=== PATIENT | female | born 1935 | race Caucasian/White ===

== ENCOUNTER 2016-03-13 11:59 | Inpatient (IN) | payer OTHER ==
[~2016-03-13] VITALS: Ht 165.1 cm; Wt 91.8 kg
--- NOTE | ~2016-03-13 | 2DMMODE ---
[facility] [address] 2 D/M-MODE ECHOCARDIOGRAM Name: BONGBENJA Jam Room #: 206-P [facility] IN .R.#: [id number] Admission: 03/13/16 Attend Phys: Kelsie Tanner Discharge: Date of : 37 Date of Service: 03/14/16 0817 Report #: [id number] THIS REPORT FOR: //name// Transthoracic Echocardiography Ordering physician: Aminata Colon Referring physician: Vinita Zamora Saida A. Camera Supervisor: Lourdes Sow Indications/History: Elevated BNP, Afib. Hx: CHF, HTN, HLP BP: 107 / HR: 104bpm Height: 65in Weight: 190.6lb 58 Study data: M-mode, complete 2D, complete spectral Doppler, and color Doppler. Location: Bedside. Routine. Image quality was adequate. 2D measurements Normal Normal LVID ED 41.9mm 36-57 IVS ED 10.7mm 6-11 LVID ES 27.4mm 23-40 LVPW ED 11.2mm 6-11 LA volume 52ml/m2 16-28 AoRoot diam 34.8mm 21-37 index ED LVOT diameter 19mm 18-23 Findings: Left ventricle: The cavity size was normal. Wall thickness was normal. Systolic function was normal. The estimated ejection fraction was in the range of 60% to 65%. Wall motion was normal. Right ventricle: The cavity size was moderately dilated. Systolic function was normal. Right atrium: The atrium was markedlydilated. Left atrium: The atrium was severely dilated. Volume index: 52ml/m2 (S). Aortic valve: Mildly thickened, mildly calcified leaflets. Doppler: There was no stenosis. Mild regurgitation. Peak velocity: 184.5cm/s (S). Peak gradient: 13.7mm Hg [address] [address] 2 D/M-MODE ECHOCARDIOGRAM Name: BENJA WOODY Room #: 206-P ADM IN M.R.#: [id number] Admission: 03/13/16 Attend Phys: Kelsie Tanner Discharge: Date of : 37 Date of Service: 03/14/16 0817 Report #: [id number] (S). Mitral valve: Mildly calcified annulus. Mildly thickened leaflets . Doppler: There was no evidence for stenosis. Moderate regurgitation. Peak E-wave velocity: 149.3cm/s. Peak gradient: 8.9mm Hg (D). Tricuspid valve: Structurally normal valve. Doppler: There was no evidence for stenosis. Moderate-severe regurgitation. Regurgitant peak velocity: 339cm/s. Peak RV-RA gradient: 46mm Hg (S). Pulmonic valve: Poorly visualized. Doppler: There was no evidence for stenosis. Trivial regurgitation. Pericardium: There was no pericardial effusion. Pleura: There was a right pleural effusion. Aorta: Aortic root: The aortic root was normal in size. Pulmonary artery: Systolic pressure was estimated to be 55mm Hg. Diastolic function: The study was not technically sufficient to allow evaluation of LV diastolic dysfunction due to atrial fibrillation. Systemic veins: Inferior vena cava: The vessel was dilated; the respirophasic diameter changes were blunted (< 50%). Conclusions 1. Left ventricle: Systolic function was normal. The estimated ejection fraction was in the range of 60% to 65%. Wall motion was normal. 2. Right atrium: The atrium was markedlydilated. 3. Left atrium: The atrium was severely dilated. 4. Aortic valve: Mildly thickened, mildly calcified leaflets. There was no stenosis. Mild regurgitation. 5. Mitral valve: Mildly calcified annulus. Mildly thickened leaflets . Moderate regurgitation. 6. Pericardium, extracardiac: There was no pericardial effusion. 7. Pulmonary arteries: Systolic pressure was estimated to be 55mm Hg. <ELECTRONICALLY SIGNED> By: Jf Trivedi MD, [facility] 03/14/16921 0817 1 Jf Trivedi MD, [facility] /alex
--- NOTE | ~2016-03-13 | HC ---
[facility] [place] [address] CONSULTATION Name: BONGBENJA CALVIN Jam Room #: 206-P ADM IN M.R.#: [id number] Admission: 03/13/16 Attend Phys: Kelsie Tanner MD Discharge: Date of : 37 Report #: [id number] THIS REPORT FOR: //name// CC: Vinita Tanner PRIMARY CARE PHYSICIAN: Unknown. REFERRAL PHYSICIAN: Guerrero Bettencourt M.D. REASON FOR REFERRAL: Pleural effusion. HISTORY OF PRESENT ILLNESS: The patient is a 80-year-old white female, who was admitted to [facility] on 03/13/2016 with increasing confusion, dyspnea and cough. A pulmonary consultation was requested regarding pleural effusion. The patient has been treated for heart failure. Chest x-ray now shows moderate sized right-sided pleural effusion along with increasing edema bilaterally. She is currently confused. She complains of dyspnea, but denies any chest pain. PAST MEDICAL HISTORY: Notable for atrial fibrillation, chronic heart failure, gastroesophageal reflux disease, allergic rhinitis, chronic anticoagulation. PAST SURGICAL HISTORY: Includes prior herniorrhaphy, abdominal surgery, hysterectomy, cholecystectomy. ALLERGIES: CONTRAST DYE, reactions are specified. MEDICATIONS: On admission include Coreg, Lasix, K-Dur, iron sulfate, Lipitor, Prilosec, Ambien, Zoloft, Ultram, Flonase, Eliquis, Remeron, nebulized albuterol, hydroxyzine. CURRENT MEDICATIONS: Reviewed, is in MAR. This include Lasix. FAMILY HISTORY: Noncontributory. SOCIAL HISTORY: She resides in the extended care facility. In regards to her immediate family in regards to what this she has immediate family in town is unknown at this time. REVIEW OF SYSTEMS: Deferred as patient is confused at this time. PHYSICAL EXAMINATION: GENERAL: She is awake, appears to be mildly dyspneic. VITAL SIGNS: Temperature is 98 degrees Fahrenheit, pulse is 70, respiratory [facility] [address] [place] [address] CONSULTATION Name: BENJA WOODY Room #: [facility] IN [facility]#: [id number] Admission: 03/13/16 Attend Phys: Kelsie Tanner MD Discharge: Date of : 37 Report #: [id number] rate is 20, blood pressure 110/63 mmHg, saturation 99% on 2 liters of O2. HEENT: Normocephalic, atraumatic. NECK: Supple, without any lymphadenopathy or thyromegaly. CHEST: Breath sounds are decreased bilaterally due to poor effort. Breath sounds are markedly reduced in the bases. No wheezes. CARDIOVASCULAR: Heart sounds are distant. No obvious murmurs or gallop. Pulses are 2+/4+ bilaterally. ABDOMEN: Soft, nontender, no masses felt. GI/RECTAL: Deferred. EXTREMITIES: Remarkable for 2+/4 both bilateral upper and lower extremity edema. Lower extremity also shows mild erythema. LABORATORY DATA: Chest x-ray was reviewed showing moderate size right-sided pleural effusion, cardiomegaly, no obvious infiltrates. ____ admission was less than 2. Echocardiogram showed ejection fraction of 65%, markedly dilated right atrium, severely dilated left atrium, aortic valve with mild regurgitation, mildly calcified, moderate mitral regurgitation, pulmonary artery pressure was 55 mmHg. Electrolytes normal with creatinine of 1.1, bicarbonate was 35. Liver function test is mildly abnormal. WBC 12,000, hemoglobin 9.5, platelets are normal. Albumin is 1.5. IMPRESSION: 1. Pleural effusion in this 80-year-old white female. She has felt diastolic dysfunction, she has atrial fibrillation on chronic anticoagulation. She appears to have anasarca by exam. Pleural effusion is likely due to heart failure. Agree that given symptoms and hypoxia, proceeding with a therapeutic and diagnostic thoracentesis will be helpful. 2. Hxxcg-ug-nkcqdbx diastolic heart failure, now with 2+ edema bilaterally. 3. Possible cellulitis involving the lower extremities with erythema. 4. Metabolic alkalosis. Suspect due to recent diuresis, though the patient does have risk factors for sleep disorder. Arterial blood gas will be obtained. 5. Permanent atrial fibrillation on chronic anticoagulation, mitral regurgitation by echocardiogram felt to be moderate. 6. Pulmonary hypertension due to valvular heart disease, possible chronic lung disease including sleep disorder. 7. Encephalopathy including dementia. 8. Currently on antibiotics for possible pneumonia. Note that the procalcitonin on admission was normal. I think the patient would also benefit from treatment for presumed cellulitis involving the lower extremities. RECOMMENDATIONS: We will proceed with thoracentesis. Consult interventional radiologist. Continue diuresis as you are. We will obtain arterial blood gas. DVT and GI prophylaxis has been addressed. Can also taper prednisone. Continue bronchodilators as you are. [facility] [address] [place] [address] CONSULTATION Name: BENJA WOODY Room #: 206-[facility] IN M.R.#: [id number] Admission: 03/13/16 Attend Phys: Kelsie Tanner MD Discharge: Date of : 37 Report #: [id number] Thank you for the consultation. <ELECTRONICALLY SIGNED> By: Geraldo Concepcion MD 03/21/16 1518 1140 1257 Geraldo Concepcion MD /nt
--- NOTE | ~2016-03-13 | EKG ---
[address] [address] ELECTROCARDIOGRAM REPORT Name: BENJA WOODY Room #: 206- ADM IN M.R.#: [id number] Admission: 03/13/16 Attend Phys: Kelsie Tanner MD Discharge: Date of : 37 Report #: [id number] THIS REPORT FOR: //name// [facility] Test Date: 2016-03-13 Test Time: 12:07:47 Pat Name: BENJA WOODY Department: Room: [facility] [place] Gender: F Transition Mgr: Jose BISHOP : 1935 Requested By: Audrey Lara Order Number: [id number] MD: Guerrero Bettencourt Measurements Intervals [place] Rate: 104 P: MI: QRS: -72 QRSD: 96 T: 54 QT: 321 QTc: 423 Interpretive Statements Atrial fibrillation Ventricular premature complex Left anterior fascicular block Anterior infarct, old No previous ECG available for comparison Electronically Signed On 03-13-2016 17:06:38 INSURANCE ANALYST by Guerrero Bettencourt [email or web address] <ELECTRONICALLY SIGNED> By: Guerrero Bettencourt MD 03/13/16 170 06 06 Guerrero Bettencourt MD /RANJEET
--- NOTE | ~2016-03-13 | CNG ---
[facility] [place] [address] CYTO-NONGYN REPORT PROCEDURE Name: BONG,BENJA D Room #: 206-P ADM IN M.R.#: [id number] Admission: 03/13/16 Date of : 37 Discharge: Report #: [id number] Path Case #: [id number] CYTOPATHOLOGY REPORT COLLECTION DATE: 03/21/2016 RECEIVED DATE: 03/22/2016 SUBMITTING PHYS: Dr. Geraldo Concepcion OTHER PHYS: Dr. Kelsie Zamora CLINICAL HISTORY: CHF, Hypoxia. SPECIMEN(S) RECEIVED: A.Pleural fluid * * * * * * * * * * * * FINAL DIAGNOSIS: A. Pleural fluid: NEGATIVE FOR MALIGNANT CELLS. Normal and reactive mesothelial cells and inflammatory cells present. PATHOLOGIST: Lois Guardado M.D. REPORT ELECTRONICALLY SIGNED BY: Lois Guardado M.D. DATE/TIME: 03/23/2016 16:25 * * * * * * * * * * * * GROSS PATHOLOGY: A. Pleural fluid: The specimen is submitted unfixed, labeled "Benja Vizcaino". Received by the Cytology Department is 10 mL of cloudy opaque fluid. One ThinPrep slide and a cell block were prepared. (clt 03.22.2016) GRAPHIC DESIGN TEACHER(S): ALFREDO Jenkins(ASCP)IAC INITIAL CPT CODE(S): A; 48541, 16112 Professional services performed by [facility] at [facility] [address], [place] [address] Technical services performed by [facility] at [address] [place] [address]., [address], [place] [address]. [facility] [address] [place] [address], [facility] [address] [place], [place] [address] [place] [address] [place] [address] CYTO-NONGYN REPORT PROCEDURE Name: BENJA VIZCAINO Room #: 206-P ADM IN M.R.#: [id number] Admission: 03/13/16 Date of : 37 Discharge: Report #: [id number] Path Case #: [id number] PHONE: [phone] DIRECTOR: Max Louise M.D. * * * END OF REPORT * * *
--- NOTE | ~2016-03-13 | HC ---
[facility] [place] [address] CONSULTATION Name: BONGBENJA D Room #: 206-P [facility] IN M.R.#: [id number] Admission: 03/13/16 Attend Phys: Kelsie Tanner MD Discharge: 03/26/16 Date of : 37 Report #: [id number] THIS REPORT FOR: //name// CC: Vinita Tanner DATE OF SERVICE: 03/18/2016 REASON FOR CONSULTATION: Hyponatremia. HISTORY OF PRESENT ILLNESS: History is very difficult as the patient is arousable, but quite demented with a compromised mental status, prior records were available in the electronic medical record and no family members are currently available. The patient was admitted with fluid overload, heart failure, atrial fibrillation with rapid ventricular rate. She was admitted from the extended care facility, some old records were available. She has undergone some diuresis, but her course has been complicated by hyponatremia. She is on thickened liquids, does not drink particularly much and has a compromised mental status, and therefore poor free water intake. Sodium went up to 151, little D5W was given, now 149. PAST MEDICAL HISTORY: Atrial fibrillation, previous hernia, hysterectomy, emphysema and cholecystectomy from the old records. MEDICATIONS: At the time of admission includes carvedilol 12.5 mg b.i.d., furosemide 80 mg daily, potassium 20 mEq daily, omeprazole 20 mg daily, atorvastatin 10 mg daily, Ambien 5 mg daily, Zoloft 25 mg daily, Eliquis 5 mg b.i.d., Remeron 30 mg at bedtime, albuterol, hydroxyzine p.r.n. and ____ list of 10 or 12 medications that apparently were recently discontinued. SOCIAL HISTORY: We know she stays in extended care facility. REVIEW OF SYSTEMS: Impossible to determine. PHYSICAL EXAMINATION: GENERAL: She is arousable, but not coherent, not oriented. A little bit of a cough. SKIN: Shows a brawny thickened edema throughout, somewhat erythematous. SKELETAL: She is well-developed and well-nourished. EYES: Extraocular movements cannot be tested. No scleral icterus. Mucous membranes are moist. NECK: Supple. CHEST: Shows diminished breath sounds. HEART: Irregularly irregular and rapid. ABDOMEN: Soft and nontender. [facility] [address] [place] [address] CONSULTATION Name: BENJA WOODY Jam Room #: [address] [place] [address] IN M.R.#: [id number] Admission: 03/13/16 Attend Phys: Kelsie Tanner MD Discharge: 03/26/16 Date of : 37 Report #: [id number] EXTREMITIES: Again, showing the diffuse brawny edema. LABORATORY DATA: No urinalysis. Sodium 149, potassium 4.2, chloride 113, bicarbonate 35 and creatinine 0.9. ASSESSMENT AND PLAN: 1. Hyponatremia, free water deficit relates to poor p.o. intake, this relates to the nectar-thickened liquids, which were hard to take in with a poor mental status. She probably has reasonably good thirst if she is awake, of course she can be given D5W, but that would only be a short-term solution, so all in all it looks like this is a very difficult patient with fluid overload, congestive heart failure. She will need diuresis I think for more comfort ____ the hospital after get D5W, possibly tube feeding with water is added, etc. 2. Congestive heart failure. 3. Atrial fibrillation with rapid ventricular rate. <ELECTRONICALLY SIGNED> By: Clyde Christine MD 03/29/16 1126 0822 1019 Clyde Christine MD /nt
--- NOTE | ~2016-03-13 | EKG ---
[address] [address] ELECTROCARDIOGRAM REPORT Name: BENJA WOODY Room #: 206- ADM IN M.R.#: [id number] Admission: 03/13/16 Attend Phys: Kelsie Tanner MD Discharge: Date of : 37 Report #: [id number] THIS REPORT FOR: //name// [facility] Test Date: 2016-03-16 Test Time: 06:24:48 Pat Name: BENJA WOODY Department: Room: 206 P Gender: F [place]: [place] : 1935 Requested By: Nisha Fonseca Order Number: [id number] MD: Jf Trivedi Measurements Intervals [place] Rate: 138 P: SD: QRS: 121 QRSD: 96 T: -14 QT: 319 QTc: 484 Interpretive Statements Atrial fibrillation with rapid V-rate Ventricular premature complex Right ventricular hypertrophy Cannot rule out septal infarct, old No previous ECGs available for comparison Electronically Signed On 03-16-2016 7:58:51 PERSONNEL RECRUITER by Jf Trivedi [email or web address] <ELECTRONICALLY SIGNED> By: Jf Trivedi MD, [facility] 03/16/16 0758 0624 0624 Jf Trivedi MD, [facility] /EPI
[~2016-03-13 11:59] MED LIST: ASPIRIN325 PO; CARVEDILOL12.5 MG PO; LANOXIN 0.120.125 M1 PO; LANOXIN 0.250.25 M1 PO; LASIX 40 MG TAB40 M1 PO; LASIX 40 MG TAB40 M2 PO; NITROGLYCERIN0.4 MG SUBLING; PREDNISONE 10 M10 MG PO; PRILOSEC 20 MG20 MG PO; TYLENOL325 MG PO; WELLBUTRIN 100100 MG PO; ZPAK PO
[2016-03-13 12:00] VITALS: BP 102/44
[2016-03-13 12:47] LABS: HEMOGLOBIN 10.5 gm/dL (12.0-15.0); MCH 25.2 pg (26.0-34.0); MCV 81.3 fL (80.0-100.0); PLATELET COUNT 314 thou/uL (150-400); RBC 4.18 mil/uL (4.20-5.00); RDW 31.7 % (10.5-14.5); WBC 14.5 thou/uL (4.0-11.0)
[2016-03-13 12:48] LABS: MANUAL DIFF YES
[2016-03-13 12:56] LABS: CREATININE 1.3 mg/dL (0.6-1.3)
[2016-03-13 13:11] LABS: ABSOLUTE NEUTROPHILS 13.1 thou/uL (1.4-8.2); PLATELET ESTIMATE NORMAL; TOTAL CELL COUNT 100
[2016-03-13 13:12] LABS: ANISOCYTOSIS 2+
[2016-03-13 13:13] LABS: ABG SAMPLE TYPE ARTERIAL; BE(vivo) 0.5 mmol/L (-2 to +3); HCO3 26.6 mmol/L (22.0-26.0); LACTATE 0.95 mmol/L (0.5-2.0); O2(CT) 14.1 mL/dL (15.0-23.0); O2Hb 90.4 % (92.0-98.0); PO2 59.7 mmHg (80.0-100.0); STICK SITE R.RADIAL; pH 7.352 (7.360-7.450); sO2 89.5 % (92.0-98.0); tCO2 28.1 mmol/L (24.0-30.0)
[2016-03-13] MEDS ORDERED: MIRALAX17 GM PO (13:53)
[2016-03-13] MEDS ORDERED: DULCOLAX5 MG PO (13:54)
[2016-03-13] MEDS ORDERED: POTASSIUM20 PO (13:55)
[2016-03-13] MEDS ORDERED: FEOSOL325 M1 PO (13:55)
[2016-03-13] MEDS ORDERED: LIPITOR10 MG PO (13:56)
[2016-03-13] MEDS ORDERED: ANTACID500 MG PO (13:57)
[2016-03-13] MEDS ORDERED: PRILOSEC 20 MG20 MG PO (13:57)
[2016-03-13] MEDS ORDERED: LOPRESSOR 12.12.5 MG PO (13:58)
[2016-03-13] MEDS ORDERED: AMBIEN 5 MG TABL5 M1 PO (13:58)
[2016-03-13] MEDS ORDERED: ULTRAM 50MG TAB50 MG PO (13:59)
[2016-03-13] MEDS ORDERED: ZOLOFT25 MG PO (13:59)
[2016-03-13] MEDS ORDERED: FLONASE 0.05%50 MCG NASAL (14:00)
[2016-03-13] MEDS ORDERED: REMERON15 MG PO (14:00)
[2016-03-13] MEDS ORDERED: ELIQUIS5 MG PO (14:00)
[2016-03-13] MEDS ORDERED: HYDROXYZINE HCL25 M1 PO (14:01)
[2016-03-13] MEDS ORDERED: ALBUTEROL2.5 MG/0.1 INH (14:01)
[2016-03-13 15:17] VITALS: BP 108/62
[2016-03-13 15:30] VITALS: BP 98/50
[2016-03-13] MEDS ORDERED: CARVEDILOL12.5 MG PO (15:49)
[2016-03-13 19:53] VITALS: BP 97/54
[2016-03-13 23:59] VITALS: BP 120/66
[2016-03-14 03:59] VITALS: BP 112/58
[2016-03-14 04:09] LABS: ALBUMIN 1.2 g/dL (3.4-5.0); CALCIUM 7.6 mg/dL (8.5-10.1); CREATININE 1.2 mg/dL (0.6-1.3); MAGNESIUM 1.8 mg/dL (1.8-2.4); POTASSIUM 4.3 mmol/L (3.5-5.1); TOTAL BILIRUBIN 0.2 mg/dL (<0.1-1.0); TOTAL PROTEIN 4.2 g/dL (6.4-8.2)
[2016-03-14 08:32] VITALS: BP 107/58
[2016-03-14 12:08] VITALS: BP 94/49
[2016-03-14 15:16] VITALS: BP 108/63
[2016-03-14 20:18] VITALS: BP 105/59
[2016-03-15 04:03] VITALS: BP 102/63
[2016-03-15 06:34] LABS: HEMOGLOBIN 9.8 gm/dL (12.0-15.0); MCHC 31.5 % (28.0-37.0); MCV 82.6 fL (80.0-100.0); PLATELET COUNT 251 thou/uL (150-400); RBC 3.75 mil/uL (4.20-5.00); RDW 31.5 % (10.5-14.5); WBC 12.2 thou/uL (4.0-11.0)
[2016-03-15 06:39] LABS: MANUAL DIFF YES
[2016-03-15 06:57] LABS: ALBUMIN 2.5 g/dL (3.4-5.0); CALCIUM 7.7 mg/dL (8.5-10.1); CREATININE 1.1 mg/dL (0.6-1.3); POTASSIUM 4.1 mmol/L (3.5-5.1); TOTAL BILIRUBIN 0.2 mg/dL (<0.1-1.0); TOTAL PROTEIN 4.9 g/dL (6.4-8.2)
[2016-03-15 07:57] LABS: ABSOLUTE NEUTROPHILS 10.4 thou/uL (1.4-8.2); TOTAL CELL COUNT 100
[2016-03-15 07:58] LABS: ANISOCYTOSIS 3+; HYPOCHROMASIA 1+; MICROCYTES 1+; OVALOCYTES 1+
[2016-03-15 08:47] VITALS: BP 104/63
[2016-03-15 13:00] VITALS: BP 100/60
[2016-03-15 16:00] VITALS: BP 107/61
[2016-03-15 19:15] VITALS: BP 138/83
[2016-03-16 04:28] LABS: HEMATOCRIT 34.5 % (37.0-47.0); HEMOGLOBIN 10.4 gm/dL (12.0-15.0); MCH 25.2 pg (26.0-34.0); MCHC 30.2 % (28.0-37.0); MCV 83.5 fL (80.0-100.0); PLATELET COUNT 252 thou/uL (150-400); RDW 31.2 % (10.5-14.5); WBC 13.2 thou/uL (4.0-11.0)
[2016-03-16 04:31] LABS: MANUAL DIFF YES
[2016-03-16 04:39] LABS: POTASSIUM 3.8 mmol/L (3.5-5.1)
[2016-03-16 05:29] VITALS: BP 122/55
[2016-03-16 05:41] LABS: ABSOLUTE NEUTROPHILS 12.3 thou/uL (1.4-8.2); ANISOCYTOSIS 4+; MACROCYTES 2+; MICROCYTES 2+; POLYCHROMASIA OCCASIONAL; TOTAL CELL COUNT 100
[2016-03-16 05:42] LABS: OVALOCYTES 1+; POIKILOCYTOSIS 1+
[2016-03-16 05:43] LABS: HYPOCHROMASIA SLIGHT
[2016-03-16 05:44] LABS: RBC 4.12 mil/uL (4.20-5.00)
[2016-03-16 07:50] VITALS: BP 112/74
[2016-03-16 11:10] VITALS: BP 105/47
[2016-03-16 16:00] VITALS: BP 118/41
[2016-03-16 19:40] VITALS: BP 95/60
[2016-03-17 04:21] VITALS: BP 126/59
[2016-03-17 04:24] LABS: HEMATOCRIT 32.5 % (37.0-47.0); MCH 25.7 pg (26.0-34.0); MCHC 30.7 % (28.0-37.0); MCV 83.9 fL (80.0-100.0); PLATELET COUNT 240 thou/uL (150-400); RBC 3.87 mil/uL (4.20-5.00); RDW 31.4 % (10.5-14.5); WBC 14.2 thou/uL (4.0-11.0)
[2016-03-17 04:35] LABS: MANUAL DIFF YES
[2016-03-17 04:37] LABS: CREATININE 0.9 mg/dL (0.6-1.3)
[2016-03-17 08:00] VITALS: BP 102/56
[2016-03-17 09:28] LABS: ABSOLUTE NEUTROPHILS 12.4 thou/uL (1.4-8.2); TOTAL CELL COUNT 100
[2016-03-17 09:29] LABS: ANISOCYTOSIS 3+; HYPOCHROMASIA SLIGHT; POIKILOCYTOSIS 1+
[2016-03-17 12:00] VITALS: BP 89/44
[2016-03-17 16:00] VITALS: BP 99/50
[2016-03-17 19:55] VITALS: BP 105/45
[2016-03-18 04:03] VITALS: BP 98/45
[2016-03-18 04:17] LABS: HEMATOCRIT 32.1 % (37.0-47.0); HEMOGLOBIN 9.7 gm/dL (12.0-15.0); MCH 25.6 pg (26.0-34.0); MCHC 30.4 % (28.0-37.0); MCV 84.3 fL (80.0-100.0); PLATELET COUNT 216 thou/uL (150-400); RDW 31.8 % (10.5-14.5); WBC 11.9 thou/uL (4.0-11.0)
[2016-03-18 04:25] LABS: MANUAL DIFF YES
[2016-03-18 04:35] LABS: CALCIUM 7.7 mg/dL (8.5-10.1); CREATININE 0.9 mg/dL (0.6-1.3); POTASSIUM 4.2 mmol/L (3.5-5.1)
[2016-03-18 05:36] LABS: ABSOLUTE NEUTROPHILS 9.4 thou/uL (1.4-8.2); OVALOCYTES 2+; POIKILOCYTOSIS 2+; TOTAL CELL COUNT 100
[2016-03-18 05:43] LABS: ANISOCYTOSIS 3+; MACROCYTES 1+; MICROCYTES 2+
[2016-03-18 08:00] VITALS: BP 121/64
[2016-03-18 12:00] VITALS: BP 105/63
[2016-03-18 17:30] VITALS: BP 106/58
[2016-03-18 19:50] VITALS: BP 105/52
[2016-03-19 03:57] VITALS: BP 92/52
[2016-03-19 04:19] LABS: ALBUMIN 1.6 g/dL (3.4-5.0); CALCIUM 7.4 mg/dL (8.5-10.1); CREATININE 0.9 mg/dL (0.6-1.3); PHOSPHORUS 1.7 mg/dL (2.5-4.9); POTASSIUM 3.9 mmol/L (3.5-5.1)
[2016-03-19 08:15] VITALS: BP 110/71
[2016-03-19] MEDS ORDERED: ZYVOX600 MG PO (10:38)
[2016-03-19] MEDS ORDERED: DIGOXIN125 MCG PO (10:38)
[2016-03-19] MEDS ORDERED: LEVAQUIN 750 M750 MG PO (10:38)
[2016-03-19] MEDS ORDERED: ATIVAN0.5 MG PO (10:38)
[2016-03-19] MEDS ORDERED: LEVOTHYROXINE0.05 MG PO (10:48)
[2016-03-19 13:18] VITALS: BP 128/74
[2016-03-19 15:43] VITALS: BP 135/85
[2016-03-19 19:30] VITALS: BP 95/57
[2016-03-20 08:14] VITALS: BP 115/52
[2016-03-20 12:01] VITALS: BP 94/48
[2016-03-20 15:34] VITALS: BP 94/47
[2016-03-20 16:10] VITALS: BP 101/42
[2016-03-20 19:42] VITALS: BP 113/47
[2016-03-20 23:20] VITALS: BP 105/44
[2016-03-21 03:39] VITALS: BP 119/73
[2016-03-21 05:08] LABS: HEMATOCRIT 31.3 % (37.0-47.0); HEMOGLOBIN 9.5 gm/dL (12.0-15.0); MCH 25.5 pg (26.0-34.0); MCHC 30.3 % (28.0-37.0); MCV 84.2 fL (80.0-100.0); PLATELET COUNT 220 thou/uL (150-400); RBC 3.72 mil/uL (4.20-5.00); RDW 30.6 % (10.5-14.5)
[2016-03-21 05:47] LABS: MANUAL DIFF YES
[2016-03-21 06:03] LABS: ALBUMIN 1.5 g/dL (3.4-5.0); CALCIUM 7.2 mg/dL (8.5-10.1); CREATININE 1.1 mg/dL (0.6-1.3); MAGNESIUM 1.7 mg/dL (1.8-2.4); POTASSIUM 4.3 mmol/L (3.5-5.1); TOTAL BILIRUBIN 0.2 mg/dL (<0.1-1.0); TOTAL PROTEIN 4.2 g/dL (6.4-8.2)
[2016-03-21 07:30] LABS: ABSOLUTE NEUTROPHILS 10.8 thou/uL (1.4-8.2); ANISOCYTOSIS 2+; OVALOCYTES 2+; SCHISTOCYTES 1+; TOTAL CELL COUNT 100
[2016-03-21 08:00] VITALS: BP 113/63
[2016-03-21 12:49] LABS: HEMATOCRIT 32.2 % (37.0-47.0); HEMOGLOBIN 9.8 gm/dL (12.0-15.0); MCH 26.1 pg (26.0-34.0); MCHC 30.5 % (28.0-37.0); MCV 85.6 fL (80.0-100.0); RBC 3.76 mil/uL (4.20-5.00); RDW 30.7 % (10.5-14.5); WBC 12.8 thou/uL (4.0-11.0)
[2016-03-21 13:00] LABS: INR 1.2
[2016-03-21 13:02] LABS: CALCIUM 7.1 mg/dL (8.5-10.1); CREATININE 1.2 mg/dL (0.6-1.3); POTASSIUM 4.3 mmol/L (3.5-5.1)
[2016-03-21 13:33] VITALS: BP 96/56
[2016-03-21 17:21] VITALS: BP 118/69
[2016-03-21 20:15] VITALS: BP 98/56
[2016-03-22 04:33] LABS: CALCIUM 7.4 mg/dL (8.5-10.1); CREATININE 1.2 mg/dL (0.6-1.3); MAGNESIUM 1.9 mg/dL (1.8-2.4); POTASSIUM 4.4 mmol/L (3.5-5.1)
[2016-03-22 04:40] VITALS: BP 105/53
[2016-03-22 08:00] VITALS: BP 105/88
[2016-03-22 09:39] LABS: TOTAL VOLUME 60
[2016-03-22 11:45] VITALS: BP 102/81
[2016-03-22 16:20] VITALS: BP 99/50
[2016-03-23 02:56] VITALS: BP 118/72
[2016-03-23 08:45] VITALS: BP 139/70
[2016-03-23 10:11] LABS: BODY FLUID ALBUMIN 0.3 g/dL (()); BODY FLUID GLUCOSE 119 mg/dL (()); BODY FLUID LDH 51 IU/L (()); BODY FLUID PROTEIN 0.8 g/dL (())
[2016-03-23 11:51] LABS: CALCIUM 7.4 mg/dL (8.5-10.1); CREATININE 1.3 mg/dL (0.6-1.3); MAGNESIUM 1.8 mg/dL (1.8-2.4); POTASSIUM 4.1 mmol/L (3.5-5.1)
[2016-03-23 12:30] VITALS: BP 90/39
[2016-03-23 16:29] VITALS: BP 127/96
[2016-03-23 19:39] VITALS: BP 94/58
[2016-03-23 22:08] LABS: BF LINING CELLS 12 % (Not Estab.); BF MACROPHAGE 36 % (Not Estab.); BF NEUTROPHILS 29 % (0-24); BF NUCLEATED CELLS 121 /mm3 (0-499); BF RBC 2000 /uL (Not Estab.); CLARITY Hazy (Clear); COLOR Yellow (())
[2016-03-24 04:11] LABS: ALBUMIN 1.5 g/dL (3.4-5.0); ALKALINE PHOSPHATASE 133 U/L (46-116); ANION GAP < 0 mmol/L (7-16); BUN 45 mg/dL (7-18); CALCIUM 7.2 mg/dL (8.5-10.1); CHLORIDE 109 mmol/L (98-107); CO2 37 mmol/L (21-32); CREATININE 1.2 mg/dL (0.6-1.3); GLUCOSE 107 mg/dL (70-99); SGOT 85 U/L (15-37); SGPT 76 U/L (30-65); SODIUM 144 mmol/L (136-145); TOTAL BILIRUBIN 0.2 mg/dL (<0.1-1.0)
[2016-03-24 05:32] VITALS: BP 116/62
[2016-03-24 08:05] VITALS: BP 112/71
[2016-03-24 19:43] VITALS: BP 117/64
[2016-03-25 04:00] LABS: CALCIUM 7.3 mg/dL (8.5-10.1); CREATININE 1.3 mg/dL (0.6-1.3); MAGNESIUM 1.9 mg/dL (1.8-2.4)
[2016-03-25 04:02] VITALS: BP 114/55
[2016-03-25 08:22] VITALS: BP 106/64
[2016-03-25 12:02] VITALS: BP 101/61
[2016-03-25 17:00] VITALS: BP 102/64
[2016-03-25 20:00] VITALS: BP 111/58
[2016-03-26 05:41] VITALS: BP 118/65
[2016-03-26 06:31] LABS: CALCIUM 7.4 mg/dL (8.5-10.1); CREATININE 1.4 mg/dL (0.6-1.3); MAGNESIUM 1.9 mg/dL (1.8-2.4); POTASSIUM 3.7 mmol/L (3.5-5.1)
[2016-03-26 08:00] VITALS: BP 122/59
[2016-03-26 11:45] VITALS: BP 95/48
[2016-03-26] MEDS ORDERED: METOLAZONE 5 MG5 MG PO (13:28)
[2016-03-26] MEDS ORDERED: K-DUR 20 MEQ T20 MEQ PO (13:28)
[2016-03-26] MEDS ORDERED: NYSTATIN 1100000 U/M SW&SWALLOW (13:28)
[2016-03-26] MEDS ORDERED: PREDNISONE 20 M20 MG PO (13:28)
[2016-03-26] MEDS ORDERED: CARVEDILOL12.5 MG PO (13:28)
[2016-03-26] MEDS ORDERED: DUONEB 2.5-0.5 M3 ML INH (13:28)
[2016-03-26 14:24] VITALS: BP 95/48
== END 2016-03-26 16:50 | DRG 177 ==
LOC: ER 11:59 → 2N 13:38 → EROBS 13:38 → 2N 14:59
PROVIDERS: Emergency Medicine; Internal Medicine; Internal Medicine Endocrinology, Diabetes & Metabolism; Internal Medicine Nephrology; Internal Medicine Pulmonary Disease; Nurse Practitioner
PROC: 0W9930Z Drainage of Right Pleural Cavity with Drainage Device, Percutaneous Approach (ICD-10-PCS; principal; 2016-03-23)
DX: J69.0 Pneumonitis due to inhalation of food and vomit (principal); E43 Unspecified severe protein-calorie malnutrition; I50.33 Acute on chronic diastolic (congestive) heart failure; J96.01 Acute respiratory failure with hypoxia; L03.115 Cellulitis of right lower limb; E87.1 Hypo-osmolality and hyponatremia; J90 Pleural effusion, not elsewhere classified; E87.0 Hyperosmolality and hypernatremia; E87.2 Acidosis; K21.9 Gastro-esophageal reflux disease without esophagitis; I87.8 Other specified disorders of veins; D72.829 Elevated white blood cell count, unspecified; J44.9 Chronic obstructive pulmonary disease, unspecified; E78.00 Pure hypercholesterolemia, unspecified; E03.9 Hypothyroidism, unspecified; D64.9 Anemia, unspecified; F41.9 Anxiety disorder, unspecified; I48.0 Paroxysmal atrial fibrillation; R13.10 Dysphagia, unspecified; I27.2 Other secondary pulmonary hypertension; Z90.49 Acquired absence of other specified parts of digestive tract; Z90.710 Acquired absence of both cervix and uterus; Z79.899 Other long term (current) drug therapy; Z79.01 Long term (current) use of anticoagulants; Z91.041 Radiographic dye allergy status; Z79.2 Long term (current) use of antibiotics; Z68.33 Body mass index [BMI] 33.0-33.9, adult
CPT/HCPCS: 10081